=== PATIENT | male | born 1950 | race Caucasian/White ===

== ENCOUNTER → 2018-04-23 09:32 | Outpatient (CLI) | payer MEDICARE, BC, SELFPAY ==
[2018-04-23 11:36] LABS: CREATININE 2.02 mg/dL (0.70-1.30); Estimated GFR 33.01 (mL/min/1.73m2)
[2018-04-23 11:38] LABS: Hemoglobin A1C 6.7 % (4.5-6.2)
[2018-04-23 15:41] LABS: Potassium 4.7 mmol/L (3.5-5.1)
== END ==
PROVIDERS: PCP Family Medicine; Visit Provider Family Medicine
DX: I10 Essential (primary) hypertension (principal); E11.9 Type 2 diabetes mellitus without complications; N28.9 Disorder of kidney and ureter, unspecified
CPT/HCPCS: 36415; 82565; 83036; 84132

== ENCOUNTER 2018-06-17 07:36 | Outpatient (CLI) | payer MEDICARE, BC, SELFPAY ==
[2018-06-17 08:12] LABS: Abs Immature Grans 0.02 k/cumm (0.0-0.09); Absolute Basophil Count 0.05 k/cumm (0.0-0.2); Absolute Eosinophil Count 0.16 k/cumm (0.0-0.7); Absolute Lymphocyte Count 2.21 k/cumm (1.2-3.4); Absolute Monocyte Count 0.47 k/cumm (0.11-0.7); Absolute Neutrophil Count 2.64 k/cumm (1.2-6.7); Basophils % 0.9; Eosinophils % 2.9; HCT 41.4 % (40.0-50.0); HGB 13.5 g/dL (13.5-17.5); Immature Grans % 0.4; Lymphocytes % 39.8; Mean Corp. HGB Concentration 32.6 g/dL (32.0-36.0); Mean Corpuscular Hemoglobin 32.7 pg (27.0-33.0); Mean Corpuscular Volume 100.2 fL (80-95); Mean Platelet Volume 9.4 fL (8.0-11.0); Monocytes % 8.5; Neutrophils % 47.5; Platelet Count 249 x1000/uL (130-400); RBC 4.13 m/cumm (4.50-6.00); RBC Distribution Width 12.5 % (11.8-14.1); White Blood Cell Count 5.55 k/cumm (4.4-10.8)
[2018-06-17 08:49] LABS: ALT 28 U/L (12-78); AST 18 U/L (15-37); Alkaline Phosphatase 59 U/L (46-116); Anion Gap 9.4 mmol/L (3-11); BUN 27 mg/dL (7-18); Bilirubin, Total 0.4 mg/dL (0.2-1.0); C-Reactive Protein 0.33 mg/dL (0.0-0.3); CO2 27.6 mmol/L (21.0-32.0); CREATININE 1.41 mg/dL (0.70-1.30); Calcium 9.3 mg/dL (8.5-10.1); Chloride 103 mmol/L (98-107); Estimated GFR 49.99 (mL/min/1.73m2); Glucose 134 mg/dL (70-100); Potassium 5.1 mmol/L (3.5-5.1); Sodium 140 mmol/L (136-145); Total Protein 7.1 g/dL (6.4-8.2); Uric Acid 5.6 mg/dL (3.5-7.2)
[2018-06-17 09:24] LABS: ESR 13 MM/HR (1-20)
== END 2018-06-17 07:56 ==
PROVIDERS: PCP Family Medicine; Visit Provider Internal Medicine Rheumatology
DX: M19.90 Unspecified osteoarthritis, unspecified site (principal); Z79.899 Other long term (current) drug therapy; E79.0 Hyperuricemia without signs of inflammatory arthritis and tophaceous disease; N28.9 Disorder of kidney and ureter, unspecified
CPT/HCPCS: 36415; 80053; 85652; 84132; 84550; 85025; 86140

== ENCOUNTER 2018-10-17 01:59 | Outpatient (CLI) | payer MEDICARE, BC, SELFPAY ==
[2018-10-17 10:49] LABS: Hemoglobin A1C 7.4 % (4.5-6.2)
== END 2018-10-17 02:19 ==
PROVIDERS: PCP Family Medicine; Visit Provider Family Medicine
DX: E11.9 Type 2 diabetes mellitus without complications (principal)
CPT/HCPCS: 36415; 83036

== ENCOUNTER 2018-10-29 10:35 | Outpatient (CLI) | payer MEDICARE, BC, SELFPAY ==
--- NOTE | 2018-10-29 09:45 | DI.RAD_ITS ---
SYMPTOMS/DIAGNOSIS: CONSTANT LT SIDED CHEST PRESSURE WORSE WITH COUGH, CHEST PAIN, TOBACCO ABUSE DISORDER, R07.9, Z72.0 PA AND LATERAL CHEST: Comparison 06/27/23. Heart size and pulmonary vasculature are within normal limits. The lungs are clear. No effusions or pneumothoraces are identified. There does appear to be flattening of the diaphragm suggesting underlying COPD. Degenerative changes are seen in the spine. IMPRESSION: Findings suggestive of COPD. No acute pulmonary process.
== END 2018-10-29 10:55 ==
PROVIDERS: PCP Family Medicine; Visit Provider Family Medicine
DX: R07.9 Chest pain, unspecified (principal); R05 Cough; F17.200 Nicotine dependence, unspecified, uncomplicated
CPT/HCPCS: 71046

== ENCOUNTER 2018-12-12 01:03 | Outpatient (CLI) | payer MEDICARE, BC, SELFPAY ==
[2018-12-12 09:25] LABS: HCT 42.3 % (40.0-50.0); Mean Corp. HGB Concentration 33.1 g/dL (32.0-36.0); Mean Corpuscular Hemoglobin 31.4 pg (27.0-33.0); Mean Corpuscular Volume 94.8 fL (80-95); Mean Platelet Volume 10.1 fL (8.0-11.0); Platelet Count 215 x1000/uL (130-400); RBC 4.46 m/cumm (4.50-6.00); RBC Distribution Width 13.3 % (11.8-14.1); White Blood Cell Count 7.02 k/cumm (4.4-10.8)
[2018-12-12 10:06] LABS: ALT 32 U/L (12-78); AST 19 U/L (15-37); Albumin 4.1 g/dL (3.4-5.0); Alkaline Phosphatase 70 U/L (46-116); Anion Gap 12.7 mmol/L (3-11); BUN 32 mg/dL (7-18); Bilirubin, Total 0.4 mg/dL (0.2-1.0); C-Reactive Protein 0.18 mg/dL (0.0-0.3); CO2 24.3 mmol/L (21.0-32.0); CREATININE 1.62 mg/dL (0.70-1.30); Calcium 9.1 mg/dL (8.5-10.1); Chloride 103 mmol/L (98-107); Estimated GFR 42.59 (mL/min/1.73m2); Glucose 132 mg/dL (70-100); Potassium 4.6 mmol/L (3.5-5.1); Sodium 140 mmol/L (136-145); Total Protein 7.4 g/dL (6.4-8.2); Uric Acid 6.7 mg/dL (3.5-7.2)
[2018-12-12 10:42] LABS: ESR 16 MM/HR (1-20)
== END 2018-12-12 01:23 ==
PROVIDERS: PCP Family Medicine; Visit Provider Internal Medicine Rheumatology
DX: E79.0 Hyperuricemia without signs of inflammatory arthritis and tophaceous disease (principal); Z79.899 Other long term (current) drug therapy
CPT/HCPCS: 36415; 80053; 85027; 85652; 82043; 82565; 82570; 83036; 84132; 84443; 84550; 86140

== ENCOUNTER 2019-06-03 01:36 | Outpatient (CLI) | payer MEDICARE, BC, SELFPAY ==
[2019-06-03 10:08] LABS: Calculated LDL 87 mg/dL; Cholesterol 171 mg/dL (50-200); HDL Cholesterol 39 mg/dL (40-60); Triglyceride 227 mg/dL (30-150)
[2019-06-03 10:12] LABS: Hemoglobin A1C 7.2 % (4.5-6.2)
== END 2019-06-03 01:56 ==
PROVIDERS: PCP Family Medicine; Visit Provider Family Medicine
DX: E11.9 Type 2 diabetes mellitus without complications (principal)
CPT/HCPCS: 36415; 80061; 83036

== ENCOUNTER 2019-06-13 00:11 | Outpatient (CLI) | payer MEDICARE, BC, SELFPAY ==
--- NOTE | 2019-06-13 06:37 | DI.US_ITS ---
EXAM: US AAA SCREENING CLINICAL HISTORY: former smoker,screening for aaa,z00.00,encounter. TECHNIQUE: Ultrasound performed using standard protocol. COMPARISON: RIGHT EXTREMITY ULTRASOUND from 05/23/2013 FINDINGS: The examination reveals no evidence of an aortic aneurysm. The largest aortic diameter is noted proxi eugenie and measures 2.8 cm. IMPRESSION: No evidence of an aortic aneurysm.
== END 2019-06-13 00:31 ==
PROVIDERS: PCP Family Medicine; Visit Provider Family Medicine
DX: Z13.6 Encounter for screening for cardiovascular disorders (principal); Z87.891 Personal history of nicotine dependence; E03.9 Hypothyroidism, unspecified
CPT/HCPCS: 36415; 76706; 84443

== ENCOUNTER 2020-07-07 11:51 | Outpatient (CLI) | payer MEDICARE, BC, SELFPAY ==
[2020-07-07 13:39] LABS: CREATININE 2.09 mg/dL (0.70-1.30); Calculated LDL 99 mg/dL (<100); Cholesterol 180 mg/dL (<200); Estimated GFR 31.55 (mL/min/1.73m2); HDL Cholesterol 40 mg/dL (40-60); Potassium 4.7 mmol/L (3.5-5.1); TSH (W/Ref FT4) 0.79 uIU/mL (0.36-3.74); Triglyceride 205 mg/dL (<150)
== END 2020-07-07 12:11 ==
PROVIDERS: PCP Family Medicine; Visit Provider Family Medicine
DX: E03.9 Hypothyroidism, unspecified (principal); I10 Essential (primary) hypertension; E78.5 Hyperlipidemia, unspecified
CPT/HCPCS: 36415; 80061; 82565; 84132; 84443

== ENCOUNTER 2021-07-12 09:16 | Outpatient (CLI) | payer MEDICARE, BC, SELFPAY ==
[2021-07-12 13:41] LABS: Hemoglobin A1C 7.8 % (<5.7)
[2021-07-13 01:36] LABS: Anion Gap 12.7 mmol/L (3-11); BUN 30 mg/dL (7-18); CO2 25.3 mmol/L (21.0-32.0); CREATININE 1.8 mg/dL (0.70-1.30); Calcium 9.4 mg/dL (8.5-10.1); Calculated LDL 81 mg/dL (<100); Chloride 103 mmol/L (98-107); Cholesterol 173 mg/dL (<200); Estimated GFR 37.38 (mL/min/1.73m2); Glucose 126 mg/dL (74-106); HDL Cholesterol 38 mg/dL (40-60); Potassium 4.7 mmol/L (3.5-5.1); Sodium 141 mmol/L (136-145); Triglyceride 271 mg/dL (<150)
[2021-07-13 01:37] LABS: TSH (W/Ref FT4) 1.52 uIU/mL (0.36-3.74)
== END 2021-07-12 09:17 | disposition home or self-care (01) ==
LOC: LOS 09:16
PROVIDERS: PCP Family Medicine; Referring Provider Family Medicine; Visit Provider Family Medicine
DX: E03.9 Hypothyroidism, unspecified (principal); E78.5 Hyperlipidemia, unspecified; E87.1 Hypo-osmolality and hyponatremia; R73.9 Hyperglycemia, unspecified
CPT/HCPCS: 36415; 80048; 80061; 83036; 84443

== ENCOUNTER 2022-12-22 01:24 | Outpatient (CLI) | payer MEDICARE, BC, SELFPAY ==
[2022-12-22 13:33] LABS: Calculated LDL 66 mg/dL (<100); Cholesterol 146 mg/dL (<200); Estimated GFR 34.81 (mL/min/1.73m2); HDL Cholesterol 36 mg/dL (40-60); Potassium 4.7 mmol/L (3.5-5.1); TSH (W/Ref FT4) 6.63 uIU/mL (0.36-3.74); Triglyceride 224 mg/dL (<150)
[2022-12-22 13:58] LABS: FREE T4 0.99 ng/dL (0.76-1.46)
== END 2022-12-22 01:25 | disposition home or self-care (01) ==
LOC: LOS 01:25
PROVIDERS: PCP Family Medicine; Visit Provider Family Medicine
DX: E03.9 Hypothyroidism, unspecified (principal); I10 Essential (primary) hypertension; E78.5 Hyperlipidemia, unspecified; M10.9 Gout, unspecified
CPT/HCPCS: 36415; 80061; 82565; 84132; 84439; 84443; 84550

== ENCOUNTER 2023-07-13 03:59 | Outpatient (CLI) | payer MEDICARE, BC, SELFPAY ==
[2023-07-13 09:02] LABS: Uric Acid 9.1 mg/dL (3.5-7.2)
== END 2023-07-13 04:00 | disposition home or self-care (01) ==
LOC: LBO 04:00
PROVIDERS: PCP Family Medicine; Visit Provider Family Medicine
DX: M10.9 Gout, unspecified (principal)
CPT/HCPCS: 36415; 84550

== ENCOUNTER 2023-09-12 04:47 | Outpatient (CLI) | payer MEDICARE, BC, SELFPAY ==
[2023-09-12 13:14] LABS: CREATININE 2.4 mg/dL (0.70-1.30); Estimated GFR 27.79 (mL/min/1.73m2); Uric Acid 8.8 mg/dL (3.5-7.2)
== END 2023-09-12 04:48 | disposition home or self-care (01) ==
LOC: LBO 04:47
PROVIDERS: PCP Family Medicine; Visit Provider Family Medicine
DX: M10.9 Gout, unspecified (principal)
CPT/HCPCS: 36415; 82565; 84550

== ENCOUNTER 2023-09-28 14:38 | Outpatient (REF) | payer MEDICARE, BC, SELFPAY ==
[2023-09-28 16:14] LABS: Bacteria Negative HPF (Negative); C & S Indicated? No; Casts Negative LPF (Negative); Crystals Negative HPF (Negative); Epithelial Cells Rare HPF (Negative); Mucus Negative (Negative); RBC 0-2 HPF (0-2); WBC 0-2 HPF (0-5)
== END 2023-09-28 14:39 | disposition home or self-care (01) ==
LOC: LBN 14:38
PROVIDERS: PCP Family Medicine; Visit Provider Family Medicine
DX: R30.0 Dysuria (principal)
CPT/HCPCS: 81015

== ENCOUNTER 2023-12-17 05:57 | Outpatient (CLI) | payer MEDICARE, BC, SELFPAY ==
[2023-12-17 12:12] LABS: CREATININE 1.8 mg/dL (0.70-1.30); Estimated GFR 39.25 (mL/min/1.73m2); Potassium 4.8 mmol/L (3.5-5.1)
== END 2023-12-17 05:58 | disposition home or self-care (01) ==
LOC: LOS 05:57
PROVIDERS: PCP Family Medicine; Visit Provider Family Medicine
DX: I10 Essential (primary) hypertension (principal)
CPT/HCPCS: 36415; 82565; 84132

== ENCOUNTER 2024-06-24 10:34 | Outpatient (CLI) | payer MEDICARE, BC, SELFPAY ==
[2024-06-24 12:51] LABS: CREATININE 2.4 mg/dL (0.70-1.30); Estimated GFR 27.62 (mL/min/1.73m2); TSH (W/Ref FT4) 0.32 uIU/mL (0.36-3.74); Uric Acid 7.9 mg/dL (3.5-7.2)
[2024-06-24 13:59] LABS: FREE T4 1.32 ng/dL (0.76-1.46)
== END 2024-06-24 10:35 | disposition home or self-care (01) ==
LOC: LOS 10:34
PROVIDERS: PCP Family Medicine; Referring Provider Family Medicine; Visit Provider Family Medicine
DX: E03.9 Hypothyroidism, unspecified (principal); I10 Essential (primary) hypertension; M10.9 Gout, unspecified; Z23 Encounter for immunization
CPT/HCPCS: 36415; 82565; 84439; 84443; 84550

== ENCOUNTER 2025-03-03 10:24 | Outpatient (CLI) | payer MEDICARE, SELFPAY ==
[2025-03-03 12:58] LABS: Estimated GFR 28.89 (mL/min/1.73m2); TSH (W/Ref FT4) 0.46 uIU/mL (0.36-3.74); Uric Acid 7.7 mg/dL (3.5-7.2)
== END 2025-03-03 10:25 | disposition home or self-care (01) ==
PROVIDERS: PCP Family Medicine; Referring Provider Family Medicine; Visit Provider Family Medicine
DX: M10.9 Gout, unspecified (principal); I10 Essential (primary) hypertension; E03.9 Hypothyroidism, unspecified
CPT/HCPCS: 36415; 82565; 84443; 84550

== ENCOUNTER → 2025-03-18 14:13 | Outpatient (BNVA) | payer MEDICARE, SELFPAY | PROVIDERS: PCP Family Medicine; Referring Provider Family Medicine; Visit Provider Physical Therapy Assistant | DX: D48.5 Neoplasm of uncertain behavior of skin (principal); J44.9 Chronic obstructive pulmonary disease, unspecified; E11.9 Type 2 diabetes mellitus without complications | CPT/HCPCS: 99203 ==